=== PATIENT | male | born 1960 | race Caucasian/White ===

== ENCOUNTER 2016-06-15 17:14 | Inpatient (IN) | payer MEDICARE ==
[2016-06-15] MEDS ORDERED: Haloperidol Lactate 5 mg/mL 1mL Vial ONE (17:27)
--- NOTE | 2016-06-15 17:33 | ED Physician Chart ---
Chief Complaint/HPI - Patient Information Date Seen:: 06/15/16 Time Seen:: 17:20 Chief Complaint:: Agitation History of Present Illness:: onset x 2 days of agitation and combative behavior; no C/P, dyspnea, abd. pain, A/N/V?D/C, fever, chills, LOC, ALOC; pt saw Psychiatrist today who placed pt on a 51/50 hold because pt had SIs with threat of an intentional drug overdose Historian:: Patient, EMS, Medical Records Review:: Nurse's Note Reviewed, EMS run form Reviewed Review of Systems - Review of Systems General/Constitutional: Fever, Chills, No weight loss, No weakness, No diaphoresis, No edema, No loss of appetite Skin: No skin lesions, No rash, No bruising Head: No headache, No light-headedness Eyes: No loss of vision, No pain, No diplopia ENT: No earache, No nasal drainage, No sore throat, No tinnitus Neck: No neck pain, No swelling, No thyromegaly, No stiffness, No mass noted Cardio Vascular: No chest pain, Palpitations, No PND, No orthopnea, No edema Pulmonary: No SOB, Cough, No sputum, No wheezing GI: Nausea, Vomiting, Diarrhea, No pain, No melena, No hematochezia, No constipation, No hematemesis G/U: No dysuria, No frequency, No hematuria Musculoskeletal: Bone or joint pain, Back pain, Muscle pain Endocrine: No polyuria, No polydipsia Psychiatric: Prior psych history, Depression, Anxiety, Suicidal ideation, Auditory hallucination, No visual hallucination Hematopoietic: No bruising, No lymphadenopathy Allergic/Immuno: No urticaria, No angioedema Neurological: No syncope, No focal symptoms, No weakness, No paresthesia, No headache, No seizure, No dizziness, No confusion, No vertigo Past Medical History - Past Medical History Past Medical History: HTN, DM, CAD, Dyslipidemia, PUD/GERD, Cataract Family History: Heart disease, Diabetes Melitus, HTN Social History: Smoker, Alcohol, Illicit Drug Use, Single Surgical History: Cholecystectomy, CABG Psychiatricy History: Depression, Bipolar Medication: Reviewed Family Medical History - Family Member Mother History Unknown: Yes Physical Exam - Physical Examination General/Constitutional: Awake, Well-developed, well-nourished, Alert, No distress, GCS 15, Non-toxic appearing, Ambulatory Head: Atraumatic Eyes: Lids, conjuctiva normal, PERRL, EOMI Skin: Nl inspection, No rash, No skin lesions, No ecchymosis, Well hydrated, No lymphadenopathy ENMT: External ears, nose nl, Nasal exam nl, Lips, teeth, gums nl Neck: Nontender, Full ROM w/o pain, No JVD, No nuchal rigidity, No bruit, No mass, No stridor Respiratory: Nl effort/Exclusion, Clear to Auscultation, No Wheeze/Rhonchi/Rales Cardio Vascular: RRR, No murmur, gallop, rubs, NL S1 S2 GI: No tenderness/rebounding/guarding, No organomegaly, No hernia, Normal BS's, Nondistended, No mass/bruits, No McBurney tenderness : No CVA tenderness Extremities: No tenderness or effusion, Full ROM, normal strength in all extremities, No edema, Normal digits & nails Other Extremities comments:: Left Shoulder and Left Rib Cage tenderness; good motor, tendon, and sensory functions; good NV functions Neuro/Psych: Alert/oriented, DTR's symmetric, Normal sensory exam, Normal motor strength, Judgement/insight normal, Mood normal, Normal gait, No focal deficits Misc: normal gait, Normal back, No paraspinal tenderness Labs/Radiology/EKG Results - Lab Results Results: Glucose: 277; otherwise unremarkable - Radiology Results Results: X-Rays: NAD - EKG Interpretations EKG Time:: 17:55 Rate & Rhythm: Rate: 97; NSR [place]: WNL Intervals: WNL Comments:: non-specific st-t changes [facility] ED Septic Shock - . Is Septic Shock (SBP<90, OR Lactate>4 mmol\L) present?: No Reassessment (Disposition) - Reassessment Reassessment Condition:: Improved - Diagnosis Diagnosis:: Uncontrolled Diabetes Mellitus; Bipolar Disorder - Aftercare/Follow up Instructions Aftercare/Follow-Up Instructions:: Counseled pt & family regarding lab results/ diagnosis & need follow up - Patient Disposition Discharge/Transfer:: Acute Care w/in this hosp Accepting Physician:: Dr. Carbone Time Called:: 1914 Time Responded:: 19:15 Admitted to:: Telemetry Spoke to:: Dr. Carbone Condition at Disposition:: Stable, Improved
[2016-06-15] MEDS ORDERED: Haloperidol Lactate 5 mg/mL 1mL Vial IVP ONE (17:39)
[2016-06-15 18:10] LABS: % BASOPHILS 0.4 % (0.0-2.0); % EOSINOPHILS 0.2 % (0.0-5.0); % LYMPHOCYTES 13.7 % (20.0-50.0); % MONOCYTES 7.4 % (2.0-10.0); % NEUTROPHILS 78.3 % (40.0-80.0); HEMATOCRIT 37.8 % (39.0-49.0); HEMOGLOBIN 12.7 gm/dL (13.2-17.3); MEAN CELL VOLUME 89.3 fl (80-99); MEAN CORPUSCULAR HGB CONC 33.6 pg (28.0-36.0); MEAN PLATELET VOLUME 8.2 fl; NEUTROPHILE ABSOLUTE 7.3 Th/cmm (1.8-8.0); PLATELET COUNT 268 Th/cmm (150-400); RED BLOOD COUNT 4.24 Mil/cmm (4.30-5.70); RED CELL DISTRIBUTION WIDTH 13.1 % (11.5-20.0); WHITE BLOOD COUNT 9.3 Th/cmm (4.8-10.8)
[2016-06-15 18:29] LABS: ANION GAP 13.4 (7.0-16.0); BUN - UREA NITROGEN 29 mg/dL (7-25); BUN/CREATININE RATIO 20.7; CALCIUM SERUM 9.1 mg/dL (8.6-10.3); CARBON DIOXIDE 22.4 mEq/L (21.0-31.0); CHLORIDE 101 mEq/L (98-107); CHOLESTEROL 178 mg/dL (<200); CREATININE - SERUM 1.4 mg/dL (0.7-1.3); GLUCOSE 277 mg/dL (70-105); INR 0.96 (0.5-1.4); POTASSIUM SERUM 3.8 mEq/L (3.5-5.1); SODIUM SERUM 133 mEq/L (136-145); TRIGLYCERIDES 148 mg/dL (<150)
[2016-06-15 18:31] LABS: TROP I 0.01 ng/mL (0.01-0.05)
[2016-06-15 18:31] LABS: ACETAMINOPHEN < 10.0 ug/mL (10.0-30.0)
[2016-06-15 18:35] LABS: BNP 20.5 pg/mL (5.0-100.0)
[2016-06-15] MEDS ORDERED: INSULIN HUMAN REGULAR 100 UNITS/ML UNIT SUBQ ONE (18:57)
[2016-06-15] MEDS ORDERED: INSULIN HUMAN REGULAR 100 UNITS/ML UNIT ONE (19:08)
[2016-06-15] MEDS ORDERED: Magnesium Hydroxide (MOM) 30 mL UDC PO PRN (19:52)
[2016-06-15] MEDS ORDERED: Fleet Enema 135 mL RC PRN (19:52)
[2016-06-15] MEDS ORDERED: DOXEPIN HCL 10 MG PO PRN (19:52)
[2016-06-15] MEDS ORDERED: guaiFENesin 200 MG/10 ML UDC PO PRN (19:54)
[2016-06-15] MEDS ORDERED: Maalox 30 mL Cup PO PRN (19:54)
[2016-06-15] MEDS: INSULIN ASPART, RECOMBINANT 100 UNITS/ML SUBQ SCH (22:00)
[2016-06-15] MEDS: Sodium Chloride 0.9% 1,000 ML IV SCH (22:02)
--- NOTE | 2016-06-15 22:10 | Admit Criteria Form ---
Admit Criteria Forms - Admit Criteria Diagnosis: PSYCHIATRIC DISORDERS Clinical Indications for Inpatient Care (Place 'X' for any and all applicable criteria): Ongoing inpatient care may be needed for ANY ONE of the following(1)(2)(3)(4)(6) (7)(8): [ ]I. Danger to self or others not manageable at lower level of care. [ ]II. Grave disability (eg, inability to perform self care necessary at lower level of care) [X]III. Agitation or inappropriate behavior interfering with care for primary condition (eg, attempting to discontinue lines or drains prematurely, unable to cooperate with respiratory care) [ ]IV. Severe disability or disorder indicated by ALL of the following: [ ]a) Severe behavioral health disorder-related symptoms or condition indicated by ANY ONE of the following: [ ]i) Severe problem with cognition, memory, judgment, or impulse control [ ]ii) Severe clinical manifestations (eg, hallucinations, delusions, other acute psychotic symptoms, oumar, extreme agitation or anxiety) [ ]b) Patient management at lower level of care is not feasible until acute intervention or modification is initiated. Extended stay beyond goal length of stay for the primary condition may be indicated when ANY ONE of the following is present: (1)(2)(3)(4): [ ]a) Patient is a danger to self or others and not manageable at lower level of care. [ ]b) Behavior crisis management, including physical or chemical restraints, is required and is not available at a lower level of care. [ ]c) Behavioral symptoms (e.g., agitation, somnolence, inappropriate behavior) are present, and are not manageable at a lower level of care. [ ]d) Patient cannot understand follow-up treatment and crisis plan. [ ]e) Provider and supports are not sufficiently available at lower level of care. [ ]f) Patient cannot participate (e.g., verify absence of plan for harm) and is in needed of monitoring. The original [facility] [employer] content created by [facility] [employer] has been revised. The portions of the content which have been revised are identified through the use of italic text or in bold, and [facility] [employer] has neither reviewed nor approved the modified material. All other unmodified content is copyright [facility] [employer]. Please see references footnoted in the original [facility] edition 2016 Admit Criteria Met?: Yes
[2016-06-16] MEDS: Hydrocodone/APAP 5mg/325mg Tab PO PRN ×2 (03:44→11:12)
[2016-06-16] MEDS: INSULIN ASPART, RECOMBINANT 100 UNITS/ML SUBQ SCH ×3 (07:47→16:56)
--- NOTE | 2016-06-16 08:18 | Diagnostic Imaging Report ---
Portable chest x-ray History: Pain Allowing for portable technique the heart size is normal. No focal pulmonary parenchymal processes. No hilar or mediastinal abnormalities. Left shoulder prosthesis noted. Impression: No acute abnormalities.
[2016-06-16] MEDS: Sodium Chloride 0.9% 1,000 ML IV SCH (08:57)
[2016-06-16] MEDS ORDERED: Aspirin 81mg Chewable Tab PO SCH (09:00)
[2016-06-16] MEDS ORDERED: MINOCYCLINE HCL 100 MG PO SCH (09:00)
--- NOTE | 2016-06-16 15:02 | History & Physical ---
ADMIT DATE: 06/16/2016 CHIEF COMPLAINT: Increasing agitation, depression and the patient being admitted for right leg infection and elevated blood sugar. HISTORY OF PRESENT ILLNESS: This is a 56-year-old male with history of diabetes, hypertension, CAD, GERD, history of stroke, was admitted from psychiatrist office. The patient was ____. The patient had been evaluated for medical clearance, but unable to be cleared secondary to elevated blood sugar as well as infected right leg. The patient denies chest pain or shortness of breath. PAST MEDICAL HISTORY: As mentioned in history present illness. PAST SURGICAL HISTORY: Status post gallbladder and CABG and left shoulder surgery. ALLERGIES: No known drug allergies. MEDICATIONS: The patient is on aspirin, ____ pravastatin, insulin sliding scale, ____, aspirin, Plavix, Proscar, gabapentin and metformin, ____. FAMILY HISTORY: Noncontributory. SOCIAL HISTORY: The patient avid smoker and drinker, use ____. Single with 3 children. REVIEW OF SYSTEMS: GENERAL: Complains of not feeling well. HEENT: The patient with some blurred vision. No neck pain. LUNGS: ____ COPD, asthma. HEART: The patient with hypertension, CAD. ABDOMEN: No nausea, vomiting, pain. GENITOURINARY: The patient denies increased frequency or dysuria. NEUROLOGIC: The patient has history of stroke. PHYSICAL EXAMINATION: VITAL SIGNS: Blood pressure ____, respirations 16, pulse 67, temperature 97.3. GENERAL: Elderly male, appears younger. NECK: Supple. LUNGS: Equal breath sounds, few rhonchi. CARDIOVASCULAR: Heart regular rate rhythm without appreciable murmurs. ABDOMEN: Soft and nontender. EXTREMITIES: Positive excoriations. NEUROLOGIC: Limited, moving all 4 extremities. LABORATORY DATA: WBC 9.2, hemoglobin 12.5, platelets 260. Sodium 132, potassium 3.8, BUN 29, creatinine 1.4. Blood sugar as high as 277. Hemoglobin A1c 8.6. ASSESSMENT AND PLAN: Dehydration, renal insufficiency, diabetes out of control, infected right lower extremity ulcer, hypertension, diabetes, coronary artery disease, gastroesophageal reflux disease, stroke, anemia, hyponatremia. We will continue the patient on IV hydration. We will correct patient's electrolyte abnormalities. We will titrate ____. We will hold off steroids for now. Continue on antibiotic. We will continue wound care. Psychiatry to follow the patient ____. We will continue to follow. [facility]# [id number]
[2016-06-16] MEDS ORDERED: Sulfamethoxazole/TMP 800/160mg Tab PO SCH (17:00)
--- NOTE | 2016-06-17 04:06 | Consultation ---
DATE OF CONSULTATION: 06/16/2016 REASON FOR CONSULTATION: Psych eval. HISTORY OF PRESENT ILLNESS: A 56-year-old male placed on a 5150 hold at nursing facility by this clinician, he was endorsing SI with intent and plan to overdose on his medications when he got home, not jeet for safety, hopeless, despairing, angry, upset, hopeless, does not feel that he has ____no social support, did not feel like he could take care of himself, suffering from chronic pain. PAST PSYCHIATRIC HISTORY: Multiple hospitalizations, multiple suicide attempts. FAMILY HISTORY: Noncontributory. SOCIAL HISTORY: The patient does have some family support from sisters, living in [place] by himself. Under medical, as noted. MEDICATIONS: Reviewed. MENTAL STATUS EXAMINATION: Stated age. Fair eye contact. Speech within normal limits. Mood "not good." Affect angry. Thought processes were linear. Thought content: The patient was endorsing SI when I wrote the hold, no HI, no evidence of any psychotic symptoms. Insight and judgment questionable. PROVISIONAL DIAGNOSES: Major depression, recurrent, severe, no psychosis, generalized anxiety disorder. Under multiple, multiple medical problems, please see full H and P by Dr. Carbone. RECOMMENDATIONS AND PLAN: Continue 5150 hold. I have idea of continued safety concerns. The patient has multiple risk factors for self-harm, including his age, multiple medical problems. He does have a suicide history on multiple attempts, most recent was a few years ago. He has been in psych hospitals before. He does not have a lot of social support. He lives alone and he was endorsing intent and plan. [facility]# [id number]
--- NOTE | 2016-06-17 10:57 | Diagnostic Imaging Report ---
Right RIBS (4 views) HISTORY: Pain No acute bony abnormalities. No fractures. No acute pulmonary parenchymal or pleural abnormalities. IMPRESSION: No acute abnormalities
--- NOTE | 2016-06-17 10:58 | Diagnostic Imaging Report ---
Left RIBS (2 views) HISTORY: Pain No definite acute bony abnormalities. No definite fractures seen. No acute pulmonary parenchymal or pleural abnormalities. Left shoulder arthroplasty noted. IMPRESSION: No definite acute abnormalities
== END 2016-06-16 17:55 | DRG 638 ==
LOC: ER 17:14 → MSI 19:50
PROVIDERS: ADMIT Internal Medicine; ATTEND Internal Medicine
DX: E11.65 Type 2 diabetes mellitus with hyperglycemia (principal); L97.819 Non-pressure chronic ulcer of other part of right lower leg with unspecified severity; F33.2 Major depressive disorder, recurrent severe without psychotic features; N28.9 Disorder of kidney and ureter, unspecified; E87.1 Hypo-osmolality and hyponatremia; I10 Essential (primary) hypertension; I25.10 Atherosclerotic heart disease of native coronary artery without angina pectoris; E78.5 Hyperlipidemia, unspecified; K21.9 Gastro-esophageal reflux disease without esophagitis; E86.0 Dehydration; D64.9 Anemia, unspecified; Z86.73 Personal history of transient ischemic attack (TIA), and cerebral infarction without residual deficits; Z79.4 Long term (current) use of insulin; Z82.49 Family history of ischemic heart disease and other diseases of the circulatory system; Z83.3 Family history of diabetes mellitus; Z90.49 Acquired absence of other specified parts of digestive tract
CPT/HCPCS: 36415-UA; 71010-TC; 71101-TC-LT; 71101-TC-RT; 80048-TC; 80061-TC; 80320-TC; 80329-TC; 82550-TC; 82948-90; 83036-90; 83880-TC; 84484-TC; 85025-TC; 85610-TC; 96374; 96375; J1200; J1630; J1644; J1815; J2060; J7030; Z7610

== ENCOUNTER 2016-06-16 17:38 | Inpatient (IN) | payer MEDICARE ==
[2016-06-16 20:08] VITALS: BP 129/86
[2016-06-16] MEDS ORDERED: Maalox 30 mL Cup PO PRN (21:22)
[2016-06-16] MEDS ORDERED: guaiFENesin 200 MG/10 ML UDC PO PRN (21:22)
[2016-06-16] MEDS ORDERED: DOXEPIN HCL 10 MG PO PRN (21:22)
[2016-06-16] MEDS ORDERED: Non-Formulary Item 1 EA (Acetaminophen [Tylenol] 650 MG) PO PRN (21:22)
[2016-06-16] MEDS ORDERED: Magnesium Hydroxide (MOM) 30 mL UDC PO PRN (21:22)
[2016-06-16] MEDS ORDERED: Fleet Enema 135 mL RC PRN (21:22)
[2016-06-17] MEDS: INSULIN ASPART, RECOMBINANT 100 UNITS/ML SUBQ SCH ×4 (06:33→21:10)
[2016-06-17] MEDS ORDERED: INSULIN ASPART, RECOMBINANT 100 UNITS/ML SUBQ SCH (07:30)
[2016-06-17] MEDS ORDERED: MINOCYCLINE HCL 100 MG PO SCH ×2 (09:00)
[2016-06-17] MEDS: Aspirin 81mg Chewable Tab PO SCH (10:17)
[2016-06-17] MEDS: Sulfamethoxazole/TMP 800/160mg Tab PO SCH ×2 (10:18→17:22)
--- NOTE | 2016-06-17 20:32 | Internal Medicine Prog Note ---
Internal Medicine Subjective - Subjective Patient seen and examined:: with staff, chart reviewed Patient is:: awake, verbal, interactive Per staff patient is:: no adverse event, no episodes of fall, confused Internal Medicine Objective - Results Recent Labs: Laboratory Last Values POC Glucose 134 MG/DL (70 - 105) H 06/17/16 16:46 - Physical Exam Vitals and I&O: Vital Signs Temp 97.6 F 06/17/16 14:00 Pulse 91 06/17/16 14:00 Resp 20 06/17/16 14:00 BP 129/89 06/17/16 14:00 Pulse Ox 100 06/17/16 14:00 Intake & Output 06/17/16 06/17/16 06/18/16 06:59 18:59 06:59 Intake Total 2200 Balance 2200 Intake: Oral 2200 Other: # Voids 2 4 # Bowel Movements 1 Active Medications: Current Medications Acetaminophen (Tylenol) 650 mg PO Q6H PRN PRN Reason: PAIN OR FEVER Stop: 08/16/16 08:15 Acetaminophen/Hydrocodone Bitart ([place] 5mg/325mg) 1 tab PO Q6H PRN PRN Reason: moderate to severe pain Stop: 08/15/16 21:21 Al Hydrox/Mg Hydrox/Simethicone (Maalox) 30 ml PO Q6HR PRN PRN Reason: GI DISTRESS Stop: 08/15/16 21:21 Aspirin (Aspirin Chewable) 162 mg PO DAILY [facility] Stop: 08/16/16 08:59 Last Admin: 06/17/16 10:17 Dose: 162 mg Bisacodyl (Dulcolax 10 Mg Supp) 10 mg RC DAILY PRN PRN Reason: Constipation Stop: 08/15/16 21:21 Clopidogrel Bisulfate (Plavix) 75 mg PO DAILY [facility] Stop: 08/16/16 08:59 Last Admin: 06/17/16 10:18 Dose: 75 mg Finasteride (Proscar) 5 mg PO HS LISA PRN Reason: Protocol Stop: 08/16/16 20:59 Gabapentin (Neurontin) 900 mg PO QID [facility] Stop: 08/16/16 08:59 Last Admin: 06/17/16 17:22 Dose: 900 mg Guaifenesin (Robitussin) 200 mg PO Q4HR PRN PRN Reason: Cough or Congestion Stop: 08/15/16 21:21 Heparin Sodium (Porcine) (Heparin) 5,000 units SUBQ Q12HR LISA Stop: 08/16/16 08:59 Last Admin: 06/17/16 10:20 Dose: 5,000 units Hydroxyzine HCl (Atarax) 10 mg PO Q6H PRN; Protocol PRN Reason: Itching Stop: 08/15/16 21:21 Insulin Aspart (Novolog) 0 units SUBQ ACHS LISA PRN Reason: Protocol Stop: 08/16/16 07:29 Last Admin: 06/17/16 17:27 Dose: Not Given Lorazepam (Ativan) 0.5 mg PO Q6HR PRN; Protocol PRN Reason: Anxiety Stop: 08/15/16 21:21 Magnesium Hydroxide (Milk Of Magnesia) 30 ml PO DAILY PRN PRN Reason: Constipation Stop: 08/15/16 21:21 Metformin HCl (Glucophage) 1,000 mg PO BID [facility] Stop: 08/16/16 08:59 Last Admin: 06/17/16 17:22 Dose: 1,000 mg Miscellaneous (Doxepin Hcl [Doxepin Hcl*]) 10 mg PO BID PRN PRN Reason: Itching Miscellaneous (Minocycline Hcl [Minocycline Hcl]) 100 mg PO DAILY [facility] Stop: 08/16/16 08:59 Miscellaneous (Minocycline Hcl [Minocycline Hcl]) 100 mg PO DAILY [facility] Stop: 08/16/16 08:59 Ondansetron HCl (Zofran) 4 mg IV Q8H PRN PRN Reason: Nausea / Vomiting Stop: 08/15/16 21:21 Paroxetine HCl (Paxil) 30 mg PO HS [facility] Stop: 08/16/16 20:59 Senna (Senna) 17.2 mg PO BID [facility] Stop: 08/16/16 08:59 Last Admin: 06/17/16 17:22 Dose: 17.2 mg Simvastatin (Zocor) 20 mg PO HS [facility] Stop: 08/16/16 20:59 Sodium Phosphate (Fleet Enema) 135 ml RC DAILY PRN PRN Reason: no bm x3 days Stop: 08/15/16 21:21 Trazodone HCl (Desyrel) 50 mg PO HS PRN; Protocol PRN Reason: Depression Stop: 08/15/16 21:21 Trimethoprim/Sulfamethoxazole (Bactrim Ds) 1 tab PO BID [facility] Stop: 08/16/16 08:59 Last Admin: 06/17/16 17:22 Dose: 1 tab General: demented HEENT: NC/AT, PERRLA Neck: Supple, No JVD Lungs: CTAB Cardiovascular: RRR, Normal S1, Normal S2 Abdomen: soft non-tender, globular, positive bowel sound Extremities: excoriation, other (wound) Neurological: unable to follow command (lle) Internal Medicine Assmt/Plan - Assessment Assessment: ASSESSMENT AND PLAN: Dehydration, renal insufficiency, diabetes out of control, infected right lower extremity ulcer, hypertension, diabetes, coronary artery disease, gastroesophageal reflux disease, stroke, anemia, hyponatremia. - Plan Plan: cont w wound care cont on po abx correct lytes cpm abdirahman rn
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
[2016-06-18] MEDS: INSULIN ASPART, RECOMBINANT 100 UNITS/ML SUBQ SCH ×4 (06:48→21:19)
[2016-06-18] MEDS: Sulfamethoxazole/TMP 800/160mg Tab PO SCH ×2 (08:58→16:25)
[2016-06-18] MEDS: Aspirin 81mg Chewable Tab PO SCH (09:00)
--- NOTE | 2016-06-18 15:40 | Internal Medicine Prog Note ---
Internal Medicine Subjective - Subjective Patient seen and examined:: with staff, chart reviewed Patient is:: awake, verbal, interactive Per staff patient is:: no adverse event, no episodes of fall, eating well Internal Medicine Objective - Results Recent Labs: Laboratory Last Values POC Glucose 258 MG/DL (70 - 105) H 06/18/16 11:11 - Physical Exam Vitals and I&O: Vital Signs Temp 97.6 F 06/17/16 14:00 Pulse 91 06/17/16 14:00 Resp 20 06/17/16 14:00 BP 129/89 06/17/16 14:00 Pulse Ox 100 06/17/16 14:00 Intake & Output 06/17/16 06/18/16 06/18/16 18:59 06:59 18:59 Intake Total 2200 Balance 2200 Intake: Oral 2200 Other: # Voids 4 # Bowel Movements 1 Active Medications: Current Medications Acetaminophen (Tylenol) 650 mg PO Q6H PRN PRN Reason: PAIN OR FEVER Stop: 08/16/16 08:15 Acetaminophen/Hydrocodone Bitart ([place] 5mg/325mg) 1 tab PO Q6H PRN PRN Reason: moderate to severe pain Stop: 08/15/16 21:21 Al Hydrox/Mg Hydrox/Simethicone (Maalox) 30 ml PO Q6HR PRN PRN Reason: GI DISTRESS Stop: 08/15/16 21:21 Aspirin (Aspirin Chewable) 162 mg PO DAILY [facility] Stop: 08/16/16 08:59 Last Admin: 06/18/16 09:00 Dose: 162 mg Bisacodyl (Dulcolax 10 Mg Supp) 10 mg RC DAILY PRN PRN Reason: Constipation Stop: 08/15/16 21:21 Clopidogrel Bisulfate (Plavix) 75 mg PO DAILY [facility] Stop: 08/16/16 08:59 Last Admin: 06/18/16 09:00 Dose: 75 mg Finasteride (Proscar) 5 mg PO HS LISA PRN Reason: Protocol Stop: 08/16/16 20:59 Last Admin: 06/17/16 21:11 Dose: 5 mg Gabapentin (Neurontin) 900 mg PO QID [facility] Stop: 08/16/16 08:59 Last Admin: 06/18/16 12:09 Dose: 900 mg Guaifenesin (Robitussin) 200 mg PO Q4HR PRN PRN Reason: Cough or Congestion Stop: 08/15/16 21:21 Heparin Sodium (Porcine) (Heparin) 5,000 units SUBQ Q12HR [facility] Stop: 08/16/16 08:59 Last Admin: 06/18/16 08:58 Dose: 5,000 units Hydroxyzine HCl (Atarax) 10 mg PO Q6H PRN; Protocol PRN Reason: Itching Stop: 08/15/16 21:21 Insulin Aspart (Novolog) 0 units SUBQ ACHS LISA PRN Reason: Protocol Stop: 08/16/16 07:29 Last Admin: 06/18/16 11:25 Dose: 6 units Lorazepam (Ativan) 0.5 mg PO Q6HR PRN; Protocol PRN Reason: Anxiety Stop: 08/15/16 21:21 Last Admin: 06/18/16 09:07 Dose: 0.5 mg Magnesium Hydroxide (Milk Of Magnesia) 30 ml PO DAILY PRN PRN Reason: Constipation Stop: 08/15/16 21:21 Metformin HCl (Glucophage) 1,000 mg PO BID [facility] Stop: 08/16/16 08:59 Last Admin: 06/18/16 08:57 Dose: 1,000 mg Miscellaneous (Doxepin Hcl [Doxepin Hcl*]) 10 mg PO BID PRN PRN Reason: Itching Ondansetron HCl (Zofran) 4 mg IV Q8H PRN PRN Reason: Nausea / Vomiting Stop: 08/15/16 21:21 Paroxetine HCl (Paxil) 30 mg PO HS [facility] Stop: 08/16/16 20:59 Last Admin: 06/17/16 21:12 Dose: 30 mg Senna (Senna) 17.2 mg PO BID [facility] Stop: 08/16/16 08:59 Last Admin: 06/18/16 08:55 Dose: 17.2 mg Simvastatin (Zocor) 20 mg PO HS [facility] Stop: 08/16/16 20:59 Last Admin: 06/17/16 21:11 Dose: 20 mg Sodium Phosphate (Fleet Enema) 135 ml RC DAILY PRN PRN Reason: no bm x3 days Stop: 08/15/16 21:21 Trazodone HCl (Desyrel) 50 mg PO HS PRN; Protocol PRN Reason: Depression Stop: 08/15/16 21:21 Trimethoprim/Sulfamethoxazole (Bactrim Ds) 1 tab PO BID [facility] Stop: 08/16/16 08:59 Last Admin: 06/18/16 08:58 Dose: 1 tab General: demented HEENT: NC/AT, PERRLA Neck: Supple, No JVD Lungs: CTAB Cardiovascular: RRR, Normal S1, Normal S2 Abdomen: soft non-tender, globular, positive bowel sound Extremities: excoriation, other (wound rle) Neurological: no change Internal Medicine Assmt/Plan - Assessment Assessment: ASSESSMENT AND PLAN: Dehydration, renal insufficiency, diabetes out of control, infected right lower extremity ulcer, hypertension, diabetes, coronary artery disease, gastroesophageal reflux disease, stroke, anemia, hyponatremia. - Plan Plan: cont w wound care cont on po abx correct lytes cpm abdirahman rn
--- NOTE | 2016-06-18 16:15 | Admit Criteria Form ---
Admit Criteria Forms - Admit Criteria Diagnosis: PSYCHIATRIC DISORDERS Clinical Indications for Inpatient Care (Place 'X' for any and all applicable criteria): Ongoing inpatient care may be needed for ANY ONE of the following(1)(2)(3)(4)(6) (7)(8): [ X]I. Danger to self or others not manageable at lower level of care. [ ]II. Grave disability (eg, inability to perform self care necessary at lower level of care) [ ]III. Agitation or inappropriate behavior interfering with care for primary condition (eg, attempting to discontinue lines or drains prematurely, unable to cooperate with respiratory care) [ ]IV. Severe disability or disorder indicated by ALL of the following: [ ]a) Severe behavioral health disorder-related symptoms or condition indicated by ANY ONE of the following: [ ]i) Severe problem with cognition, memory, judgment, or impulse control [ ]ii) Severe clinical manifestations (eg, hallucinations, delusions, other acute psychotic symptoms, oumar, extreme agitation or anxiety) [ ]b) Patient management at lower level of care is not feasible until acute intervention or modification is initiated. Extended stay beyond goal length of stay for the primary condition may be indicated when ANY ONE of the following is present: (1)(2)(3)(4): [ ]a) Patient is a danger to self or others and not manageable at lower level of care. [ ]b) Behavior crisis management, including physical or chemical restraints, is required and is not available at a lower level of care. [ ]c) Behavioral symptoms (e.g., agitation, somnolence, inappropriate behavior) are present, and are not manageable at a lower level of care. [ ]d) Patient cannot understand follow-up treatment and crisis plan. [ ]e) Provider and supports are not sufficiently available at lower level of care. [ ]f) Patient cannot participate (e.g., verify absence of plan for harm) and is in needed of monitoring. The original [facility] [employer] content created by [email or web address] has been revised. The portions of the content which have been revised are identified through the use of italic text or in bold, and [email or web address] has neither reviewed nor approved the modified material. All other unmodified content is copyright [facility] [employer]. Please see references footnoted in the original [facility] edition 2016 Admit Criteria Met?: Yes
--- NOTE | 2016-06-19 03:22 | Progress Notes ---
DATE: 06/18/2016 SUBJECTIVE: The patient was seen, chart reviewed, discussed with staff. The patient depressed, withdrawn, still symptomatic, guarded about any SI. He is pretty fixated on leaving, upset that he is here in the first place, but he did tell me a few days ago that he was suicidal with an intent and plan to overdose. States he has involvement from sisters and the level of the involvement is unclear. The patient remains irritable, upset. Sleeping fairly well, eating well. ASSESSMENT: The patient remains symptomatic, still depressed, withdrawn, guarded about any SI, but also focused on discharge. PLAN: Continue to monitor and titrate medications. The patient is doing well on Ativan p.r.n. JOB# [id number]
[2016-06-19] MEDS: INSULIN ASPART, RECOMBINANT 100 UNITS/ML SUBQ SCH ×4 (06:41→20:24)
[2016-06-19] MEDS: Aspirin 81mg Chewable Tab PO SCH (08:48)
[2016-06-19] MEDS: Sulfamethoxazole/TMP 800/160mg Tab PO SCH ×2 (08:49→16:23)
--- NOTE | 2016-06-19 13:58 | Internal Medicine Prog Note ---
Internal Medicine Subjective - Subjective Patient seen and examined:: with staff, chart reviewed Patient is:: awake, verbal, interactive Per staff patient is:: no adverse event, other (co bruising bue) Internal Medicine Objective - Results Recent Labs: Laboratory Last Values POC Glucose 177 MG/DL (70 - 105) H 06/19/16 11:16 - Physical Exam Vitals and I&O: Vital Signs Temp 98.4 F 06/18/16 14:00 Pulse 95 06/18/16 14:00 Resp 18 06/19/16 08:00 BP 107/68 06/18/16 14:00 Pulse Ox 98 06/18/16 14:00 Intake & Output 06/18/16 06/19/16 06/19/16 18:59 06:59 18:59 Intake Total 900 Balance 900 Intake: Oral 900 Other: # Voids 4 # Bowel Movements 1 Active Medications: Current Medications Acetaminophen (Tylenol) 650 mg PO Q6H PRN PRN Reason: PAIN OR FEVER Stop: 08/16/16 08:15 Acetaminophen/Hydrocodone Bitart ([place] 5mg/325mg) 1 tab PO Q6H PRN PRN Reason: moderate to severe pain Stop: 08/15/16 21:21 Al Hydrox/Mg Hydrox/Simethicone (Maalox) 30 ml PO Q6HR PRN PRN Reason: GI DISTRESS Stop: 08/15/16 21:21 Aspirin (Aspirin Chewable) 162 mg PO DAILY [facility] Stop: 08/16/16 08:59 Last Admin: 06/19/16 08:48 Dose: 162 mg Bisacodyl (Dulcolax 10 Mg Supp) 10 mg RC DAILY PRN PRN Reason: Constipation Stop: 08/15/16 21:21 Clopidogrel Bisulfate (Plavix) 75 mg PO DAILY [facility] Stop: 08/16/16 08:59 Last Admin: 06/19/16 08:48 Dose: 75 mg Finasteride (Proscar) 5 mg PO HS LISA PRN Reason: Protocol Stop: 08/16/16 20:59 Last Admin: 06/18/16 21:17 Dose: 5 mg Gabapentin (Neurontin) 900 mg PO QID [facility] Stop: 08/16/16 08:59 Last Admin: 06/19/16 13:03 Dose: 900 mg Guaifenesin (Robitussin) 200 mg PO Q4HR PRN PRN Reason: Cough or Congestion Stop: 08/15/16 21:21 Heparin Sodium (Porcine) (Heparin) 5,000 units SUBQ Q12HR [facility] Stop: 08/16/16 08:59 Last Admin: 06/19/16 08:48 Dose: 5,000 units Hydroxyzine HCl (Atarax) 10 mg PO Q6H PRN; Protocol PRN Reason: Itching Stop: 08/15/16 21:21 Insulin Aspart (Novolog) 0 units SUBQ ACHS LISA PRN Reason: Protocol Stop: 08/16/16 07:29 Last Admin: 06/19/16 11:23 Dose: 2 units Lorazepam (Ativan) 0.5 mg PO Q6HR PRN; Protocol PRN Reason: Anxiety Stop: 08/15/16 21:21 Last Admin: 06/19/16 09:01 Dose: 0.5 mg Magnesium Hydroxide (Milk Of Magnesia) 30 ml PO DAILY PRN PRN Reason: Constipation Stop: 08/15/16 21:21 Metformin HCl (Glucophage) 1,000 mg PO BID [facility] Stop: 08/16/16 08:59 Last Admin: 06/19/16 08:49 Dose: 1,000 mg Ondansetron HCl (Zofran) 4 mg IV Q8H PRN PRN Reason: Nausea / Vomiting Stop: 08/15/16 21:21 Paroxetine HCl (Paxil) 30 mg PO HS [facility] Stop: 08/16/16 20:59 Last Admin: 06/18/16 21:17 Dose: 30 mg Senna (Senna) 17.2 mg PO BID [facility] Stop: 08/16/16 08:59 Last Admin: 06/19/16 08:49 Dose: 17.2 mg Simvastatin (Zocor) 20 mg PO HS [facility] Stop: 08/16/16 20:59 Last Admin: 06/18/16 21:17 Dose: 20 mg Sodium Phosphate (Fleet Enema) 135 ml RC DAILY PRN PRN Reason: no bm x3 days Stop: 08/15/16 21:21 Trazodone HCl (Desyrel) 50 mg PO HS PRN; Protocol PRN Reason: Depression Stop: 08/15/16 21:21 Trimethoprim/Sulfamethoxazole (Bactrim Ds) 1 tab PO BID [facility] Stop: 08/16/16 08:59 Last Admin: 06/19/16 08:49 Dose: 1 tab General: alert HEENT: NC/AT, PERRLA Neck: Supple Lungs: CTAB Cardiovascular: RRR, Normal S1, Normal S2 Abdomen: soft non-tender, globular, positive bowel sound Extremities: excoriation, other (bue ecchymoses) Neurological: no change, disorganized Internal Medicine Assmt/Plan - Assessment Assessment: ASSESSMENT AND PLAN: Dehydration, renal insufficiency, diabetes out of control, infected right lower extremity ulcer, hypertension, diabetes, coronary artery disease, gastroesophageal reflux disease, stroke, anemia, hyponatremia. bue bruising - Plan Plan: cont w wound care cont on po abx correct lytes cpm dw rn check pt, ptt
[2016-06-19 15:21] LABS: PROTHROMBIN TIME (TEST) 8.9 SECONDS (9.5-11.5)
[2016-06-19 15:28] LABS: INR 0.86 (0.5-1.4)
[2016-06-20] MEDS: INSULIN ASPART, RECOMBINANT 100 UNITS/ML SUBQ SCH ×4 (06:36→21:32)
[2016-06-20] MEDS: Aspirin 81mg Chewable Tab PO SCH (08:53)
[2016-06-20] MEDS: Sulfamethoxazole/TMP 800/160mg Tab PO SCH ×2 (08:54→16:50)
[2016-06-20] MEDS: Hydrocodone/APAP 5mg/325mg Tab PO PRN (09:36)
--- NOTE | 2016-06-20 12:04 | Progress Notes ---
DATE: 06/19/[address] Heck. SUBJECTIVE: The patient was seen and evaluated. The patient's chart was reviewed. Overnight staff reporting that the patient is ____ to be little bit slightly more engaging, although at times observed to be down. The patient was initially brought in here, reporting that he was not happy and in the past, has had multiple suicide attempts and he had planned to overdose on his medications. On [id number] evaluation, the patient reports he is feeling still slightly depressed, ____ by the safety, feels overwhelmed, distraught and ____ anxious. Denies any side effects of the medications. On mental status examination, he is distraught, depressed, ____, poor insight and judgment and poor impulse control endorsing suicidal ideation. ASSESSMENT AND PLAN: The patient is a 56-year-old male with a history of major depression disorder. We will continue with primary psychiatrist treatment plan and goal. We will continue with the gabapentin and continue with the ____. He is able to tolerate without any complications or side effects of the medications to ____ severe depression. JOB# [id number]
--- NOTE | 2016-06-20 21:27 | Internal Medicine Prog Note ---
Internal Medicine Subjective - Subjective Patient seen and examined:: with staff, chart reviewed Patient is:: awake, verbal, interactive Per staff patient is:: no adverse event, no episodes of fall Internal Medicine Objective - Results Recent Labs: Laboratory Last Values PT 8.9 SECONDS (9.5-11.5) L 06/19/16 14:48 INR 0.86 (0.5-1.4) 06/19/16 14:48 PTT (Actin FS) 23.6 SECONDS (26.0-38.0) L 06/19/16 14:48 POC Glucose 145 MG/DL (70 - 105) H 06/20/16 20:03 - Physical Exam Vitals and I&O: Vital Signs Temp 98.3 F 06/20/16 20:48 Pulse 101 06/20/16 20:48 Resp 18 06/20/16 20:48 BP 137/90 06/20/16 20:48 Pulse Ox 100 06/20/16 20:48 Intake & Output 06/20/16 06/20/16 06/21/16 06:59 18:59 06:59 Intake Total 240 1200 240 Balance 240 1200 240 Intake: Oral 240 1200 240 Other: # Voids 1 4 1 # Bowel Movements 1 Active Medications: Current Medications Acetaminophen (Tylenol) 650 mg PO Q6H PRN PRN Reason: PAIN OR FEVER Stop: 08/16/16 08:15 Acetaminophen/Hydrocodone Bitart ([place] 5mg/325mg) 1 tab PO Q6H PRN PRN Reason: moderate to severe pain Stop: 08/15/16 21:21 Last Admin: 06/20/16 09:36 Dose: 1 tab Al Hydrox/Mg Hydrox/Simethicone (Maalox) 30 ml PO Q6HR PRN PRN Reason: GI DISTRESS Stop: 08/15/16 21:21 Aspirin (Aspirin Chewable) 162 mg PO DAILY [facility] Stop: 08/16/16 08:59 Last Admin: 06/20/16 08:53 Dose: 162 mg Bisacodyl (Dulcolax 10 Mg Supp) 10 mg RC DAILY PRN PRN Reason: Constipation Stop: 08/15/16 21:21 Clopidogrel Bisulfate (Plavix) 75 mg PO DAILY [facility] Stop: 08/16/16 08:59 Last Admin: 06/20/16 08:54 Dose: 75 mg Finasteride (Proscar) 5 mg PO HS [facility]ISA PRN Reason: Protocol Stop: 08/16/16 20:59 Last Admin: 06/20/16 21:07 Dose: 5 mg Gabapentin (Neurontin) 900 mg PO QID [facility] Stop: 08/16/16 08:59 Last Admin: 06/20/16 21:07 Dose: 900 mg Guaifenesin (Robitussin) 200 mg PO Q4HR PRN PRN Reason: Cough or Congestion Stop: 08/15/16 21:21 Heparin Sodium (Porcine) (Heparin) 5,000 units SUBQ Q12HR [facility] Stop: 08/16/16 08:59 Last Admin: 06/20/16 21:12 Dose: 5,000 units Hydroxyzine HCl (Atarax) 10 mg PO Q6H PRN; Protocol PRN Reason: Itching Stop: 08/15/16 21:21 Last Admin: 06/19/16 14:09 Dose: 10 mg Insulin Aspart (Novolog) 0 units SUBQ ACHS LISA PRN Reason: Protocol Stop: 08/16/16 07:29 Last Admin: 06/20/16 17:51 Dose: 2 units Lorazepam (Ativan) 0.5 mg PO Q6HR PRN; Protocol PRN Reason: Anxiety Stop: 08/15/16 21:21 Last Admin: 06/20/16 21:10 Dose: 0.5 mg Magnesium Hydroxide (Milk Of Magnesia) 30 ml PO DAILY PRN PRN Reason: Constipation Stop: 08/15/16 21:21 Metformin HCl (Glucophage) 1,000 mg PO BID [facility] Stop: 08/16/16 08:59 Last Admin: 06/20/16 16:50 Dose: 1,000 mg Ondansetron HCl (Zofran) 4 mg IV Q8H PRN PRN Reason: Nausea / Vomiting Stop: 08/15/16 21:21 Paroxetine HCl (Paxil) 30 mg PO HS [facility] Stop: 08/16/16 20:59 Last Admin: 06/20/16 21:06 Dose: 30 mg Senna (Senna) 17.2 mg PO BID [facility] Stop: 08/16/16 08:59 Last Admin: 06/20/16 16:51 Dose: 17.2 mg Simvastatin (Zocor) 20 mg PO HS [facility] Stop: 08/16/16 20:59 Last Admin: 06/20/16 21:08 Dose: 20 mg Sodium Phosphate (Fleet Enema) 135 ml RC DAILY PRN PRN Reason: no bm x3 days Stop: 08/15/16 21:21 Trazodone HCl (Desyrel) 50 mg PO HS PRN; Protocol PRN Reason: Depression Stop: 08/15/16 21:21 Trimethoprim/Sulfamethoxazole (Bactrim Ds) 1 tab PO BID [facility] Stop: 08/16/16 08:59 Last Admin: 06/20/16 16:50 Dose: 1 tab General: alert, bilateral temporal wasting HEENT: NC/AT, PERRLA Neck: Supple, No JVD Lungs: CTAB Cardiovascular: RRR, Normal S1, Normal S2 Abdomen: soft non-tender, globular, positive bowel sound Extremities: excoriation, ecchymosis (bue) Neurological: no change, alert Internal Medicine Assmt/Plan - Assessment Assessment: ASSESSMENT AND PLAN: Dehydration, renal insufficiency, diabetes out of control, infected right lower extremity ulcer, hypertension, diabetes, coronary artery disease, gastroesophageal reflux disease, stroke, anemia, hyponatremia. bue bruising - Plan Plan: cont w wound care cont on po abx correct lytes cpm dw rn check pt, ptt per pt pulled on bue, cause of injury
--- NOTE | 2016-06-20 22:17 | Progress Notes ---
DATE: 06/20/2016 The patient was seen and evaluated. The patient's chart reviewed. Covering for Dr. Heck. SUBJECTIVE: Nursing staff reported the patient has little bit better affect, more engaging. Today on [id number] evaluation, the patient reported his mood is slightly feeling better. No voices. No side effects of the medications. MENTAL STATUS EXAMINATION: Better affect, less depressed, less anxious, improvement in insight and judgment and impulse control. ASSESSMENT AND PLAN: The patient is a 56-year-old male with major depressive disorder, recovering and improving well with the current medication regimen. We will continue monitoring and evaluating to ensure mood stability and coping skills improvement. Prior to this, to minimize deterioration outside of a structured environment. [facility]# [id number]
[2016-06-21] MEDS: INSULIN ASPART, RECOMBINANT 100 UNITS/ML SUBQ SCH ×4 (06:42→20:53)
[2016-06-21] MEDS: Aspirin 81mg Chewable Tab PO SCH (08:42)
[2016-06-21] MEDS: Sulfamethoxazole/TMP 800/160mg Tab PO SCH ×2 (08:42→16:25)
--- NOTE | 2016-06-21 15:42 | Internal Medicine Prog Note ---
Internal Medicine Subjective - Subjective Patient seen and examined:: with staff, chart reviewed Patient is:: awake, verbal, interactive Per staff patient is:: no adverse event Internal Medicine Objective - Results Recent Labs: Laboratory Last Values PT 8.9 SECONDS (9.5-11.5) L 06/19/16 14:48 INR 0.86 (0.5-1.4) 06/19/16 14:48 PTT (Actin FS) 23.6 SECONDS (26.0-38.0) L 06/19/16 14:48 POC Glucose 217 MG/DL (70 - 105) H 06/21/16 11:24 - Physical Exam Vitals and I&O: Vital Signs Temp 98.2 F 06/21/16 09:59 Pulse 86 06/21/16 09:59 Resp 20 06/21/16 09:59 BP 112/75 06/21/16 09:59 Pulse Ox 99 06/21/16 09:59 Intake & Output 06/20/16 06/21/16 06/21/16 18:59 06:59 18:59 Intake Total 1200 240 Balance 1200 240 Intake: Oral 1200 240 Other: # Voids 4 1 # Bowel Movements 1 0 Active Medications: Current Medications Acetaminophen (Tylenol) 650 mg PO Q6H PRN PRN Reason: PAIN OR FEVER Stop: 08/16/16 08:15 Acetaminophen/Hydrocodone Bitart ([place] 5mg/325mg) 1 tab PO Q6H PRN PRN Reason: moderate to severe pain Stop: 08/15/16 21:21 Last Admin: 06/20/16 09:36 Dose: 1 tab Al Hydrox/Mg Hydrox/Simethicone (Maalox) 30 ml PO Q6HR PRN PRN Reason: GI DISTRESS Stop: 08/15/16 21:21 Aspirin (Aspirin Chewable) 162 mg PO DAILY [facility] Stop: 08/16/16 08:59 Last Admin: 06/21/16 08:42 Dose: 162 mg Bisacodyl (Dulcolax 10 Mg Supp) 10 mg RC DAILY PRN PRN Reason: Constipation Stop: 08/15/16 21:21 Clopidogrel Bisulfate (Plavix) 75 mg PO DAILY [facility] Stop: 08/16/16 08:59 Last Admin: 06/21/16 08:42 Dose: 75 mg Finasteride (Proscar) 5 mg PO HS [facility] PRN Reason: Protocol Stop: 08/16/16 20:59 Last Admin: 06/20/16 21:07 Dose: 5 mg Gabapentin (Neurontin) 900 mg PO QID [facility] Stop: 08/16/16 08:59 Last Admin: 06/21/16 12:12 Dose: 900 mg Guaifenesin (Robitussin) 200 mg PO Q4HR PRN PRN Reason: Cough or Congestion Stop: 08/15/16 21:21 Heparin Sodium (Porcine) (Heparin) 5,000 units SUBQ Q12HR [facility] Stop: 08/16/16 08:59 Last Admin: 06/21/16 08:42 Dose: 5,000 units Hydroxyzine HCl (Atarax) 10 mg PO Q6H PRN; Protocol PRN Reason: Itching Stop: 08/15/16 21:21 Last Admin: 06/19/16 14:09 Dose: 10 mg Insulin Aspart (Novolog) 0 units SUBQ ACHS LISA PRN Reason: Protocol Stop: 08/16/16 07:29 Last Admin: 06/21/16 12:05 Dose: 4 units Lorazepam (Ativan) 0.5 mg PO Q6HR PRN; Protocol PRN Reason: Anxiety Stop: 08/15/16 21:21 Last Admin: 06/20/16 21:10 Dose: 0.5 mg Magnesium Hydroxide (Milk Of Magnesia) 30 ml PO DAILY PRN PRN Reason: Constipation Stop: 08/15/16 21:21 Metformin HCl (Glucophage) 1,000 mg PO BID [facility] Stop: 08/16/16 08:59 Last Admin: 06/21/16 08:42 Dose: 1,000 mg Ondansetron HCl (Zofran) 4 mg IV Q8H PRN PRN Reason: Nausea / Vomiting Stop: 08/15/16 21:21 Paroxetine HCl (Paxil) 30 mg PO [facility] Stop: 08/16/16 20:59 Last Admin: 06/20/16 21:06 Dose: 30 mg Senna (Senna) 17.2 mg PO BID [facility] Stop: 08/16/16 08:59 Last Admin: 06/21/16 08:42 Dose: 17.2 mg Simvastatin (Zocor) 20 mg PO HS [facility] Stop: 08/16/16 20:59 Last Admin: 06/20/16 21:08 Dose: 20 mg Sodium Phosphate (Fleet Enema) 135 ml RC DAILY PRN PRN Reason: no bm x3 days Stop: 08/15/16 21:21 Trazodone HCl (Desyrel) 50 mg PO HS PRN; Protocol PRN Reason: Depression Stop: 08/15/16 21:21 Trimethoprim/Sulfamethoxazole (Bactrim Ds) 1 tab PO BID [facility] Stop: 08/16/16 08:59 Last Admin: 06/21/16 08:42 Dose: 1 tab General: alert HEENT: NC/AT, PERRLA Neck: Supple Lungs: CTAB Cardiovascular: RRR, Normal S1, Normal S2 Abdomen: soft non-tender, thin, positive bowel sound Extremities: excoriation, other (wound lle) Neurological: no change Internal Medicine Assmt/Plan - Assessment Assessment: ASSESSMENT AND PLAN: Dehydration, renal insufficiency, diabetes out of control, infected right lower extremity ulcer, hypertension, diabetes, coronary artery disease, gastroesophageal reflux disease, stroke, anemia, hyponatremia. bue bruising - Plan Plan: cont w wound care cont on po abx correct lytes cpm dw rn check pt, ptt per pt pulled on bue, cause of injury
--- NOTE | 2016-06-21 17:52 | Discharge Summary ---
DATE OF DISCHARGE: 06/21/2016 JUSTIFICATION FOR HOSPITALIZATION: 5150 hold, danger to self. The patient expressed SI with intent and plan. CHIEF COMPLAINT: Suicidal. HISTORY OF PRESENT ILLNESS: A 56-year-old male who I saw in nursing facility expressing SI with intent and plan to overdose, depressed, anxious, hopeless thoughts. PAST PSYCHIATRIC HISTORY: He attests to suicide attempts in the past. SOCIAL HISTORY: Born in [place]. Not , 3 daughters. Sister also around and he lives nearby one of them. MEDICATIONS: Reviewed. MENTAL STATUS EXAMINATION: Please see full psych eval for details. MEDICAL: Please see full H and P by Dr. Carbone. PROVISIONAL DIAGNOSES: Major depression, recurrent, severe. No psychosis. LABORATORY DATA: Reviewed. HOSPITAL COURSE: After initial assessment, the patient was restarted back on Paxil, also Ativan. Over the course of the hospitalization, the patient did improve, mood improved. Affect improved, getting along well with staff and peers, sleeping better, eating better, friendlier, calmer, expressed frustration about his slow medical progress, but was attesting to more hope as he was still walking much better. In my absence over the weekend, avionics systems technician psych MD was also noting robust improvement, better spirits. By 06/21/2016, placement was confirmed and the patient was discharged home. CONDITION UPON DISCHARGE: Improved, good attention ADLs, good eye contact. Speech was within normal limits. Mood clinically much better, affect brighter and broader. Thought processes were linear and no SI, no intent, no plan. No HI, no intent, no plan. No auditory hallucinations. No visual hallucinations. No paranoia. Concentration was well sustained. Insight and judgment improved x 2. Hopeful motivated. No thought constriction, wants to get better. We will continue his rehabilitation. Anxiety, better controlled. Suicidal risk assessment low. DISCHARGE DIAGNOSES: Major depression, recurrent, severe. No psychosis. Also, anxiety, unspecified. MEDICAL: Please see full H and P. PROGNOSIS: The patient follows up with Psychiatry in 7-10 days and continues to treatment plan. Prognosis will improve, otherwise guarded. JOB# [id number] [facility]
[2016-06-21] MEDS: Hydrocodone/APAP 5mg/325mg Tab PO PRN (20:54)
[2016-06-22] MEDS: Hydrocodone/APAP 5mg/325mg Tab PO PRN (04:44)
[2016-06-22] MEDS: INSULIN ASPART, RECOMBINANT 100 UNITS/ML SUBQ SCH ×3 (06:35→16:47)
[2016-06-22] MEDS: Aspirin 81mg Chewable Tab PO SCH (08:32)
[2016-06-22] MEDS: Sulfamethoxazole/TMP 800/160mg Tab PO SCH ×2 (08:54→16:52)
--- NOTE | 2016-06-23 07:56 | Progress Notes ---
DATE: 06/22/2016 SUBJECTIVE: The patient was seen, chart reviewed, and discussed with staff. The patient was to be discharged yesterday, however, due to concerns about home health setup, there was a delay in discharge. The patient on [id number] is friendly, cooperative, states he feels "okay." Denying any sadness, somewhat anxious to go home, sleeping well, eating well, friendly, ____, socializing, interactive, hopeful, and motivated. ASSESSMENT: Good attention to ADLs, good eye contact. Speech within normal limits. Mood is "much better." Affect is broader. Thought processes were linear. No suicidal ideation, no intent, no plan. No homicidal ideation, no intent, no plan. No evidence of psychosis, better insight. I did get a chance to speak with sister over the phone yesterday at length. PLAN: As long as home health is set up today, we will discharge. JOB# [id number]
== END 2016-06-22 18:25 | disposition home or self-care (01) | DRG 885 ==
LOC: GERO 17:38
PROVIDERS: ADMIT Psychiatry & Neurology Psychiatry; ATTEND Psychiatry & Neurology Psychiatry
DX: F33.2 Major depressive disorder, recurrent severe without psychotic features (principal); E87.1 Hypo-osmolality and hyponatremia; E11.65 Type 2 diabetes mellitus with hyperglycemia; L97.919 Non-pressure chronic ulcer of unspecified part of right lower leg with unspecified severity; I10 Essential (primary) hypertension; E86.0 Dehydration; N28.9 Disorder of kidney and ureter, unspecified; I25.10 Atherosclerotic heart disease of native coronary artery without angina pectoris; K21.9 Gastro-esophageal reflux disease without esophagitis; D64.9 Anemia, unspecified; F41.9 Anxiety disorder, unspecified; Z86.73 Personal history of transient ischemic attack (TIA), and cerebral infarction without residual deficits
CPT/HCPCS: 36415-UA; 82948-90; 85610-TC; 90899; G0410; J1644; Z7610